=== PATIENT | male | born 1985 | race Hispanic/Latino ===

== ENCOUNTER 2020-10-15 20:32 | Emergency (ER) ==
--- NOTE | 2020-10-15 21:43 | RAD ---
Lumbar spine 2 views: HISTORY: Trauma, low back pain FINDINGS: No acute fracture or subluxation is identified in the lumbar spine. There is mild compression of the superior endplate of T12.
--- NOTE | 2020-10-15 21:44 | RAD ---
XR Femur Lt 2 View STANDARD HISTORY: Trauma, left lower extremity pain COMPARISON: None. FINDINGS: The left femur is intact.
== END 2020-10-15 22:06 | disposition home or self-care (01) ==
LOC: NAV ERS 20:32
DX: M54.5 Low back pain (principal); E11.9 Type 2 diabetes mellitus without complications; I10 Essential (primary) hypertension; E78.00 Pure hypercholesterolemia, unspecified; Z79.84 Long term (current) use of oral hypoglycemic drugs; Z79.899 Other long term (current) drug therapy; V49.9XXA Car occupant (driver) (passenger) injured in unspecified traffic accident, initial encounter
CPT/HCPCS: 72100; 99283